=== PATIENT | female | born 1955 | race Caucasian/White ===

== ENCOUNTER 2016-10-06 12:34 | Emergency (ER) | payer OTHER ==
[2016-10-06 14:13] LABS: BASOPHILS 0.3 % (0-2); EOSINOPHILS 1.5 % (0-7); HEMATOCRIT 41.8 % (36.0-48.0); HEMOGLOBIN 13.5 g/dL (12-16); IMMATURE GRANULOCYTES 0.2 % (0-5); MCH 28.7 pg (26.0-34.0); MCHC 32.3 g/dL (31.0-37.0); MCV 88.7 fL (80.0-100.0); MEAN PLATELET VOLUME 9.5 fL (7.4-10.4); MONOCYTES 4.1 % (2-11); NEUTROPHILS 66.9 % (40-80); PLATELET COUNT 362 10x3/uL (130-400); RBC 4.71 10x6/uL (4.00-5.40); RDW 13.4 % (11.5-14.5); WBC 9.7 10x3/uL (4.8-10.8)
[2016-10-06 14:30] LABS: ALBUMIN 2.8 g/dL (3.4-5.0); ALKALINE PHOSPHATASE 89 U/L (46-116); ALT (SGPT) 21 U/L (10-68); BILIRUBIN - TOTAL 0.26 mg/dL (0.2-1.3); CALC OSMOLALITY 283 mosm/kg (275-300); CALCIUM 8.8 mg/dL (8.5-10.1); CARBON DIOXIDE 32.1 mmol/L (21.0-32.0); CHLORIDE - SERUM 102 mmol/L (98-107); CREATININE - SERUM 0.8 mg/dL (0.6-1.3); GLUCOSE 223 mg/dL (74-106); POTASSIUM - SERUM 3.8 mmol/L (3.5-5.1); PROTEIN - SERUM 7.6 g/dL (6.4-8.2); SODIUM 139 mmol/L (136-145); UREA NITROGEN 10 mg/dL (7-18); eGFR NON AFRICAN AMERICAN 77 mL/min (90-120)
[2016-10-06 14:41] LABS: CHOL - HDL RATIO 5.3 ratio (2.3-4.1); CHOLESTEROL, TOTAL 192 mg/dL (0-200); CKMB 1.2 U/L (0.0-3.6); CREATINE KINASE 44 UL (21-215); HDL CHOLESTEROL 36 mg/dL (32-96); LDL CHOLESTEROL 113 mg/dL (0-100); LDL-HDL RATIO 3.1 ratio (1.5-3.5); TRIGLYCERIDE 215 mg/dL (30-200)
[2016-10-06 14:50] LABS: TROPONIN-I < 0.017 ng/mL (0.000-0.060)
== END 2016-10-06 16:35 | disposition home or self-care (01) ==
LOC: D.ER 12:34
PROVIDERS: Emergency Medicine
DX: R73.9 Hyperglycemia, unspecified (principal); R07.9 Chest pain, unspecified; I20.0 Unstable angina; Z86.73 Personal history of transient ischemic attack (TIA), and cerebral infarction without residual deficits; I25.10 Atherosclerotic heart disease of native coronary artery without angina pectoris; F17.200 Nicotine dependence, unspecified, uncomplicated

== ENCOUNTER 2017-02-15 16:54 | Emergency (ER) | payer OTHER | END 2017-02-15 19:23 | disposition home or self-care (01) | LOC: D.ER 16:54 | DX: G45.9 Transient cerebral ischemic attack, unspecified (principal); F17.200 Nicotine dependence, unspecified, uncomplicated ==

== ENCOUNTER 2018-08-24 21:01 | Inpatient (IN) | payer SELFPAY, OTHER ==
[~2018-08-24] VITALS: Ht 175.3 cm; Wt 87.7 kg
[2018-08-24 21:59] VITALS: BP 152/81
[2018-08-24 22:16] LABS: BASOPHILS 0.5 % (0-2); EOSINOPHILS 2.3 % (0-7); HEMATOCRIT 40.1 % (36.0-48.0); HEMOGLOBIN 13.6 g/dL (12-16); IMMATURE GRANULOCYTES 0.1 % (0-5); LYMPHOCYTES 26.1 % (15-50); MCH 29.3 pg (26.0-34.0); MCHC 33.9 g/dL (31.0-37.0); MCV 86.4 fL (80.0-100.0); PLATELET COUNT 290 10x3/uL (130-400); RBC 4.64 10x6/uL (4.00-5.40); RDW 13.5 % (11.5-14.5); WBC 9.9 10x3/uL (4.8-10.8)
[2018-08-24 22:26] LABS: APTT 31.5 SECONDS (22.8-39.4); INR 1.03 (0.85-1.17)
[2018-08-24 22:32] LABS: ALBUMIN 3.1 g/dL (3.4-5.0); ALKALINE PHOSPHATASE 95 U/L (46-116); ALT (SGPT) 20 U/L (10-68); BILIRUBIN - TOTAL 0.16 mg/dL (0.2-1.3); CALC OSMOLALITY 285 mosm/kg (275-300); CALCIUM 8.9 mg/dL (8.5-10.1); CARBON DIOXIDE 30.7 mmol/L (21.0-32.0); CHLORIDE - SERUM 101 mmol/L (98-107); CREATININE - SERUM 0.8 mg/dL (0.6-1.3); GLUCOSE 179 mg/dL (74-106); POTASSIUM - SERUM 3.5 mmol/L (3.5-5.1); PROTEIN - SERUM 7.7 g/dL (6.4-8.2); SODIUM 142 mmol/L (136-145); UREA NITROGEN 9 mg/dL (7-18); eGFR NON AFRICAN AMERICAN 77 mL/min (90-120)
[2018-08-24 22:43] LABS: CKMB 0.9 U/L (0.0-3.6); CREATINE KINASE 44 UL (21-215); MAGNESIUM - SERUM 1.8 mg/dL (1.8-2.4); TROPONIN-I < 0.017 ng/mL (0.000-0.060)
[2018-08-24 22:59] VITALS: BP 164/80
--- NOTE | 2018-08-24 23:36 | NUR ---
PT GONE TO CT AT THIS TIME.
[2018-08-25 02:25] VITALS: BP 134/73
--- NOTE | 2018-08-25 03:00 | NUR ---
PT ALERT AND ORIENTED. V/S STABLE. DENIES CHEST PAINS. STATES HAS SOME CHRONIC BACK PAIN, HOB READJUSTED. OFFERED TYLENOL- STATES "ALLERGIC" THEN STATES USED TO TAKE NORCO- STATES - MAYBE IT WASN'T TYLENOL, BUT NAPROXEN I CAN'T TAKE. PT IN NO DISTRES. DR GRACE IN TO SEE PATIENT.
[2018-08-25 05:00] VITALS: BP 125/85
--- NOTE | 2018-08-25 05:16 | NUR ---
RESTING QUIETLY WITH EYES CLOSED. NO DISTRESS NOTED.
[2018-08-25 05:32] VITALS: BP 138/71; BMI 28.5
--- NOTE | 2018-08-25 07:10 | NUR ---
REPORT TO ELLIE SKELTON.
--- NOTE | 2018-08-25 07:15 | NUR ---
HAND-OFF REPORT RECEIVED FROM OFF GOING NURSE ELLIE ATYLOR. PT LYING IN BED, RESPIRATIONS EVEN AND UNLABORED. ULTRASOUND AT THE BEDSIDE FOR ORDERED TEST. NO SIGNS OF DISRESS. WILL CONTINUE TO MONITOR.
--- NOTE | 2018-08-25 07:45 | NUR ---
PT GIVEN AHA BREAKFAST TRAY ORDERED.
--- NOTE | 2018-08-25 08:11 | NUR ---
PT LEAVING THE ED VIA WHEELCHAIR FOR ORDERED MRI.
--- NOTE | 2018-08-25 08:53 | NUR ---
PT RETURNED TO THE ED AT THIS TIME.
[2018-08-25 09:04] VITALS: BP 150/71
--- NOTE | 2018-08-25 09:04 | NUR ---
PT RATES PAIN 10/10, CHRONIC IN NATURE TO HER BACK. PT DECLINED THE NEED FOR ANY PAIN MEDICATION AT THIS TIME. ULTRASOUND AT THE BEDSIDE AT THIS TIME FOR ORDERED ECHO.
[2018-08-25 10:38] VITALS: Ht 175.3 cm; Wt 87.7 kg
[2018-08-25 13:19] LABS: APPEARANCE CLEAR (CLEAR); BILIRUBIN NEGATIVE (NEGATIVE); COLOR YELLOW (YELLOW); GLUCOSE 1000 mg/dL (NEGATIVE); KETONE NEGATIVE (NEGATIVE); NITRITE NEGATIVE (NEGATIVE); PROTEIN NEGATIVE (NEGATIVE); SPECIFIC GRAVITY 1.015 (1.005-1.020); UROBILINOGEN NORMAL (NORMAL)
[2018-08-25 13:26] LABS: UDS - AMPHET NEGATIVE QUAL (NEGATIVE); UDS - BARB NEGATIVE QUAL (NEGATIVE); UDS - BENZO NEGATIVE QUAL (NEGATIVE); UDS - COCAINE NEGATIVE QUAL (NEGATIVE); UDS - OPIATE NEGATIVE QUAL (NEGATIVE); UDS - PCP NEGATIVE QUAL (NEGATIVE); UDS - THC NEGATIVE QUAL (NEGATIVE)
--- NOTE | 2018-08-25 14:24 | MORECARE ---
CASE MANAGEMENT DISCHARGE SUMMARY PATIENT: EVANS KIM UNIT: [id number] ADM DATE: 08/25/18 AGE: 63 : 55 SEX: F ROOM/BED: D.2210 AUTHOR: GABE,DOC PHYSICIAN: REFERRING PHYSICIAN: IZZY ANDERSON MD DATE OF SERVICE: 08/25/18 Discharge Plan Patient Name: EVANS KIM Facility: [facility]:[place] : 1955 Planned Disposition: Home Anticipated Discharge Date: 08/27/18 Discharge Date: Expected LOS: 2 Initial Reviewer: [email or web address] Initial Review Date: 08/25/2018 Generated: 08/25/18 3:23 pm DCP- Discharge Planning Updated by [email or web address]: Edith Pederson on 08/25/18 1:[address] Patient Name: EVANS KIM Admission Status: ER Accout number: [id number] Admission Date: 08-25-2018 : 1955 Admission Diagnosis: Attending: IZZY ANDERSON Current LOS: 1 Anticipated DC Date: 08-27-2018 Planned Disposition: Home Primary Insurance: UNINSURED DISCOUNT PLAN Discharge Planning Comments: CM met with patient to complete initial dc planning assessment. CM educated patient on the CM role and verbal consent given by patient to complete assessment. 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 At discharge patient plans to return home and feels this is a safe discharge. CM discussed availability of home health, rehab services, and medical equipment. She asked about meals on wheels. CM provided the patient with a handout for [employer] including their phone number to call and inquire about their services. Patient denied further known discharge needs at this time. CM will continue to follow and will assist as needed with dc plans/needs. [place]: Edith Pederson DCPIA - Discharge Planning Initial Assessment Updated by [email or web address]: Edith Pederson on 08/25/18 2:19 pm * Is the patient Alert and Oriented? Yes * How many steps to enter\exit or inside your home? * PCP No PCP * Pharmacy [facility] * Preadmission Environment Home with Family * ADLs Independent * Equipment Cane Rolling Walker * List name and contact numbers for known caregivers / representatives who currently or will assist patient after discharge: Rose Swift - [phone] * Verbal permission to speak to the caregivers and representatives has been obtained from the patient. Yes * Community resources currently utilized None * Additional services required to return to the preadmission environment? No * Can the patient safely return to the preadmission environment? Yes * Has this patient been hospitalized within the prior 30 days at any hospital? No Patient Name: EVANS KIM Page [id number] at 1424 All edits/amendments must be made on the electronic document DICTATION DATE: 08/25/181422 CAMPAIGN SPECIALIST: JOMAR 08/25/18 142 RPT#: [id number] DC DATE: STATUS: ADM IN [facility] [address] [place] [address] END OF REPORT
[2018-08-25 16:46] VITALS: BP 119/71
[2018-08-25 20:54] VITALS: BP 127/62
[2018-08-26 00:54] VITALS: BP 142/60
[2018-08-26 05:01] VITALS: BP 134/70
[2018-08-26 08:24] LABS: ALBUMIN 2.8 g/dL (3.4-5.0); ALKALINE PHOSPHATASE 87 U/L (46-116); ALT (SGPT) 20 U/L (10-68); BILIRUBIN - TOTAL 0.16 mg/dL (0.2-1.3); CALC OSMOLALITY 283 mosm/kg (275-300); CALCIUM 8.5 mg/dL (8.5-10.1); CARBON DIOXIDE 29.2 mmol/L (21.0-32.0); CHLORIDE - SERUM 104 mmol/L (98-107); CREATININE - SERUM 0.6 mg/dL (0.6-1.3); GLUCOSE 170 mg/dL (74-106); POTASSIUM - SERUM 3.8 mmol/L (3.5-5.1); PROTEIN - SERUM 7.1 g/dL (6.4-8.2); SODIUM 141 mmol/L (136-145); UREA NITROGEN 11 mg/dL (7-18); eGFR NON AFRICAN AMERICAN > 90 mL/min (90-120)
[2018-08-26 08:30] VITALS: BP 114/58
[2018-08-26 08:31] LABS: BASOPHILS 0.6 % (0-2); EOSINOPHILS 2.4 % (0-7); HEMATOCRIT 40.7 % (36.0-48.0); HEMOGLOBIN 13.7 g/dL (12-16); IMMATURE GRANULOCYTES 0.1 % (0-5); LYMPHOCYTES 33.9 % (15-50); MCH 29.2 pg (26.0-34.0); MCHC 33.7 g/dL (31.0-37.0); MCV 86.8 fL (80.0-100.0); MEAN PLATELET VOLUME 10.2 fL (7.4-10.4); MONOCYTES 7.6 % (2-11); NEUTROPHILS 55.4 % (40-80); PLATELET COUNT 248 10x3/uL (130-400); RBC 4.69 10x6/uL (4.00-5.40); RDW 13.4 % (11.5-14.5); WBC 7.9 10x3/uL (4.8-10.8)
--- NOTE | 2018-08-26 10:40 | NUR ---
WORRIED ABOUT POTENTIAL SURGERY AND/OR WHAT REMOVAL OF THE ANEURYSM. 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 PATIENT WENT FOR A WALK AFTER THIS CONVERSATION
[2018-08-26 13:03] VITALS: BP 153/71
[2018-08-26 14:45] VITALS: BP 142/71
[2018-08-26] MEDS ORDERED: LIPITOR20 MG PO ×2 (17:42→17:43)
--- NOTE | 2018-08-26 19:10 | NUR ---
IV CATH DC'ED OUT OF LEFT FOREARM. TIP INTACT. DISCHARGE INSTRUCTIONS GIVEN. VERBALIZED UNDERSTANDING. REFUSED WHEELCHAIR RIDE.
--- NOTE | 2018-08-27 11:11 | MORECARE ---
CASE MANAGEMENT DISCHARGE SUMMARY PATIENT: EVANS KIM UNIT: [id number] ADM DATE: 08/25/18 AGE: 63 : 55 SEX: F ROOM/BED: D.2210 AUTHOR: GABE,DOC PHYSICIAN: REFERRING PHYSICIAN: IZZY ANDERSON MD DATE OF SERVICE: 08/27/18 Discharge Plan Patient Name: EVANS KIM Facility: [facility]:[place] : 1955 Planned Disposition: Home Anticipated Discharge Date: 08/27/18 Discharge Date: 08/26/2018 Expected LOS: 2 Initial Reviewer: [email or web address] Initial Review Date: 08/25/2018 Generated: 08/27/18 12:11 pm DCP- Discharge Planning Updated by [email or web address]: Edith Pederson on 08/25/18 1:[address] Patient Name: EVANS KIM Admission Status: ER Accout number: [id number] Admission Date: 08-25-2018 : 1955 Admission Diagnosis: Attending: IZZY ANDERSON Current LOS: 1 Anticipated DC Date: 08-27-2018 Planned Disposition: Home Primary Insurance: UNINSURED DISCOUNT PLAN Discharge Planning Comments: CM met with patient to complete initial dc planning assessment. CM educated patient on the CM role and verbal consent given by patient to complete assessment. 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 At discharge patient plans to return home and feels this is a safe discharge. CM discussed availability of home health, rehab services, and medical equipment. She asked about meals on wheels. CM provided the patient with a handout for [employer] including their phone number to call and inquire about their services. Patient denied further known discharge needs at this time. CM will continue to follow and will assist as needed with dc plans/needs. Director Of Recruitment And Admissions: Edith Pederson DCPIA - Discharge Planning Initial Assessment Updated by [email or web address]: Edith Pederson on 08/25/18 2:19 pm * Is the patient Alert and Oriented? Yes * How many steps to enter\exit or inside your home? * PCP No PCP * Pharmacy [facility] * Preadmission Environment Home with Family * ADLs Independent * Equipment Cane Rolling Walker * List name and contact numbers for known caregivers / representatives who currently or will assist patient after discharge: Rose Swift - [phone] * Verbal permission to speak to the caregivers and representatives has been obtained from the patient. Yes * Community resources currently utilized None * Additional services required to return to the preadmission environment? No * Can the patient safely return to the preadmission environment? Yes * Has this patient been hospitalized within the prior 30 days at any hospital? No Last DP export: 08/25/18 1:23 p Patient Name: EVANS KIM Page [id number] at 1111 All edits/amendments must be made on the electronic document DICTATION DATE: 08/27/18 111 REPORT CHECKER: JOMAR 08/27/18 1110 RPT#: [id number] DC DATE:08/26/18 STATUS: DIS IN [facility] [address] [place] [address] END OF REPORT
== END 2018-08-26 19:11 | disposition home or self-care (01) | DRG 57 ==
LOC: D.ER 21:01 → D.MS 08-25 03:03 → D.EDHOLD 08-25 03:03 → D.MS 08-25 13:36
PROVIDERS: Family Medicine; ADMIT Internal Medicine Nephrology; ATTEND Internal Medicine Nephrology
DX: I69.398 Other sequelae of cerebral infarction (principal); F17.213 Nicotine dependence, cigarettes, with withdrawal; G93.89 Other specified disorders of brain; I65.21 Occlusion and stenosis of right carotid artery; I67.1 Cerebral aneurysm, nonruptured

== ENCOUNTER 2019-04-30 15:47 | Emergency (ER) | payer SELFPAY, OTHER ==
[~2019-04-30] VITALS: Ht 175.3 cm; Wt 84.1 kg
[~2019-04-30 15:47] MED LIST: LIPITOR20 MG PO
[2019-04-30 15:59] VITALS: Ht 175.3 cm; Wt 84.1 kg
[2019-04-30] MEDS ORDERED: BAYER CHEWABLE81 MG PO (16:00)
[2019-04-30 16:45] LABS: BASOPHILS 0.2 % (0-2); EOSINOPHILS 1.4 % (0-7); HEMATOCRIT 41.6 % (36.0-48.0); IMMATURE GRANULOCYTES 0.2 % (0-5); LYMPHOCYTES 20.6 % (15-50); MCHC 33.7 g/dL (31.0-37.0); MCV 89.1 fL (80.0-100.0); MEAN PLATELET VOLUME 9.4 fL (7.4-10.4); MONOCYTES 5.8 % (2-11); NEUTROPHILS 71.8 % (40-80); PLATELET COUNT 293 10x3/uL (130-400); RBC 4.67 10x6/uL (4.00-5.40); RDW 13.2 % (11.5-14.5); WBC 8.8 10x3/uL (4.8-10.8)
[2019-04-30 17:02] LABS: APTT 31.3 SECONDS (22.8-39.4); INR 1.07 (0.85-1.17); PROTIME 13.4 SECONDS (11.6-15.0)
[2019-04-30 17:04] LABS: CALC OSMOLALITY 290 mosm/kg (275-300); CALCIUM 8.6 mg/dL (8.5-10.1); CARBON DIOXIDE 29.5 mmol/L (21.0-32.0); CHLORIDE - SERUM 104 mmol/L (98-107); CREATININE - SERUM 0.8 mg/dL (0.6-1.3); GLUCOSE 257 mg/dL (74-106); POTASSIUM - SERUM 3.8 mmol/L (3.5-5.1); SODIUM 141 mmol/L (136-145); UREA NITROGEN 15 mg/dL (7-18); eGFR NON AFRICAN AMERICAN 76 mL/min (90-120)
[2019-04-30 17:18] LABS: ALBUMIN 3.2 g/dL (3.4-5.0); ALKALINE PHOSPHATASE 100 U/L (46-116); ALT (SGPT) 25 U/L (10-68); BILIRUBIN - TOTAL 0.16 mg/dL (0.2-1.3); CKMB 0.7 U/L (0.0-3.6); CREATINE KINASE 61 UL (21-215); MAGNESIUM - SERUM 1.9 mg/dL (1.8-2.4); PROTEIN - SERUM 7.5 g/dL (6.4-8.2); THYROID STIMULATING HORMONE 0.99 uIU/mL (0.36-3.74); TROPONIN-I < 0.017 ng/mL (0.000-0.060)
[2019-04-30 22:00] VITALS: BP 155/76
== END 2019-04-30 22:00 | disposition short-term general hospital (02) ==
LOC: D.ER 15:47
PROVIDERS: Family Medicine
DX: I63.9 Cerebral infarction, unspecified (principal); Z72.0 Tobacco use; Z86.73 Personal history of transient ischemic attack (TIA), and cerebral infarction without residual deficits

== ENCOUNTER 2020-01-25 22:42 | Emergency (ER) | payer MEDICARE, OTHER ==
[~2020-01-25] VITALS: Ht 175.3 cm; Wt 81.8 kg
[~2020-01-25 22:42] MED LIST changes: +BAYER CHEWABLE81 MG PO
[2020-01-25 22:50] VITALS: Ht 175.3 cm; Wt 81.8 kg
[2020-01-25] MEDS ORDERED: NORCO 7.5-3251 EACH PO (22:55)
[2020-01-25] MEDS ORDERED: ZOLOFT100 MG PO (22:56)
[2020-01-25] MEDS ORDERED: ARIMIDEX (22:56)
[2020-01-26 00:18] VITALS: BP 152/62
== END 2020-01-26 00:18 | disposition home or self-care (01) ==
LOC: D.ER 22:42
DX: M25.531 Pain in right wrist (principal); Z86.73 Personal history of transient ischemic attack (TIA), and cerebral infarction without residual deficits